=== PATIENT | female | born 1965 | race Native Hawaiian/Other Pacific Islander ===

== ENCOUNTER 2023-06-04 14:44 | Emergency (ER) | payer OTHER ==
[~2023-06-04] VITALS: Ht 154.9 cm; Wt 93.4 kg
[2023-06-04 14:44] VITALS: BP 162/79; TEMP 97.8
[2023-06-04 15:29] LABS: PLATELET COUNT 255 K/uL (152-353)
[2023-06-04] MEDS ORDERED: TRULICITY0.75 MG/0. SC (16:41)
[2023-06-04] MEDS ORDERED: NOVOLOG100 UNIT/M SC (16:42)
[2023-06-04] MEDS ORDERED: NOVOLOG FL100 UNIT/M SC (16:43)
[2023-06-04] MEDS ORDERED: LEVEMIR FL100 UNIT/M SC (16:43)
[2023-06-04] MEDS ORDERED: QUET25TA2 PO (16:45)
[2023-06-04] MEDS ORDERED: HALOPERIDOL0.5 MG PO (16:46)
[2023-06-04] MEDS ORDERED: ESCI10TA PO (16:46)
[2023-06-04] MEDS ORDERED: DIVA250T PO (16:47)
[2023-06-04] MEDS ORDERED: ASPIRIN LOW81 MG PO (16:47)
[2023-06-04] MEDS ORDERED: VITAMIN D325 MCG PO (16:47)
[2023-06-04] MEDS ORDERED: CULTURELLE PO (16:48)
[2023-06-04] MEDS ORDERED: CLARITIN10 M1 PO (16:49)
[2023-06-04] MEDS ORDERED: LISI5TAB10 PO (16:49)
[2023-06-04] MEDS ORDERED: DQZATE100 MG PO (16:49)
[2023-06-04] MEDS ORDERED: REFRESH PLUS0.51 OPTH (16:50)
[2023-06-04] MEDS ORDERED: EUTHYROX50 MCG PO (16:50)
[2023-06-04] MEDS ORDERED: ROSU10TA PO (16:50)
[2023-06-15] MEDS ORDERED: LORA10TA3 PO (10:00)
[2023-06-15] MEDS ORDERED: LISI5TAB10 PO (10:01)
[2023-06-15] MEDS ORDERED: QUET25TA2 PO (10:02)
[2023-06-15] MEDS ORDERED: ASPI81TA4 PO (10:02)
[2023-06-15] MEDS ORDERED: DIVALPROEX250 MG PO (10:02)
[2023-06-15] MEDS ORDERED: ESCI10TA PO (10:03)
[2023-06-15] MEDS ORDERED: DOCU100C10 PO (10:03)
[2023-06-15] MEDS ORDERED: INSU100P SC (10:06)
[2023-06-15] MEDS ORDERED: INSU-1996 SC (10:07)
[2023-06-15] MEDS ORDERED: LEVO0.0529 PO (10:07)
[2023-06-15] MEDS ORDERED: INSUINJ20 SC (10:08)
== END 2023-06-04 15:43 | disposition still patient (30) ==
LOC: ED 14:44
PROVIDERS: Family Medicine
DX: Z04.6 Encounter for general psychiatric examination, requested by authority (principal); R45.6 Violent behavior; J44.9 Chronic obstructive pulmonary disease, unspecified; E11.9 Type 2 diabetes mellitus without complications; I10 Essential (primary) hypertension; Z20.822 Contact with and (suspected) exposure to COVID-19
CPT/HCPCS: 36415; 80053; 85027; 87635; 93005; 99283; U0003